=== PATIENT | male | born 1965 | race Hispanic/Latino ===

== ENCOUNTER 2021-03-04 20:28 | Emergency (ER) | payer MEDICAID, MEDICARE ==
[~2021-03-04] VITALS: Ht 165.1 cm; Wt 81.6 kg
[2021-03-04 20:37] VITALS: BP 152/86
[2021-03-04 22:59] VITALS: BP_SYST 162; BP_DIAS 81; BP_DIAS 88
[2021-03-04] MEDS ORDERED: ORPHENADRINE CITRATE 30 MG/ML ML ONE (23:22)
[2021-03-04] MEDS ORDERED: KETOROLAC 60 MG VIAL (30MG/ML) ONE (23:22)
[2021-03-04] MEDS ORDERED: ORPHENADRINE CITRATE 30 MG/ML ML IM ONE (23:30)
[2021-03-04] MEDS ORDERED: KETOROLAC 60 MG VIAL (30MG/ML) IM ONE (23:30)
[2021-03-05] MEDS ORDERED: ORPH-43 PO (00:36)
[2021-03-05] MEDS ORDERED: MELO7.5T12 PO (00:36)
[2021-03-05] MEDS ORDERED: LIDOP TP (00:36)
[2021-03-05 00:49] VITALS: BP 154/87
== END 2021-03-05 00:48 | disposition home or self-care (01) ==
LOC: EDH 20:28
DX: S46.911A Strain of unspecified muscle, fascia and tendon at shoulder and upper arm level, right arm, initial encounter (principal); M62.838 Other muscle spasm; E11.9 Type 2 diabetes mellitus without complications; E78.00 Pure hypercholesterolemia, unspecified; I10 Essential (primary) hypertension; Z79.1 Long term (current) use of non-steroidal anti-inflammatories (NSAID); Z86.73 Personal history of transient ischemic attack (TIA), and cerebral infarction without residual deficits; X58.XXXA Exposure to other specified factors, initial encounter; Y93.89 Activity, other specified; Y92.89 Other specified places as the place of occurrence of the external cause; Y99.8 Other external cause status
CPT/HCPCS: 73030; 96372 ×2; 99284; J1885; J2360

== ENCOUNTER 2022-08-09 13:55 | Emergency (ER) | payer MEDICAID ==
[~2022-08-09] VITALS: Ht 165.1 cm; Wt 81.6 kg
[~2022-08-09 13:55] MED LIST: LIDOP TP; MELO7.5T12 PO; ORPH-43 PO
[2022-08-09 16:01] LABS: BASOPHILS % (AUTO) 0.5 % (0.0-5.0); EOSINOPHILS % (AUTO) 3.7 % (0.0-8.0); HEMATOCRIT 42.8 % (42-54); LYMPHOCYTES % (AUTO) 38.6 % (21.0-51.0); MEAN CORPUSCULAR HEMOGLOBIN 28.1 pg (27.0-33.0); MEAN CORPUSCULAR HGB CONC 34.6 g/dL (32.0-36.0); MEAN CORPUSCULAR VOLUME 81.2 fL (79-99); MONOCYTES % (AUTO) 7.7 % (3.0-13.0); NEUTROPHILS % (AUTO) 49.3 % (40.0-77.0); PLATELET COUNT (AUTO) 180 K/uL (130-400); RED BLOOD CELL COUNT(AUTO) 5.27 MIL/uL (4.50-6.20); RED CELL DISTRIBUTION WIDTH 13.9 % (11.0-15.5); WHITE BLOOD COUNT (AUTO) 6.2 K/uL (4.8-10.8)
[2022-08-09 16:07] LABS: CREATININE 0.9 mg/dL (0.5-1.5); POTASSIUM 3.9 mmol/L (3.5-5.1)
[2022-08-09 16:12] LABS: ALBUMIN 3.8 g/dL (3.5-5.0); TOTAL PROTEIN, SERUM 8.3 g/dL (6.0-8.3)
[2022-08-09 17:25] VITALS: BP 156/85
== END 2022-08-09 17:32 | disposition home or self-care (01) ==
LOC: EDH 13:55
DX: S01.81XA Laceration without foreign body of other part of head, initial encounter (principal); E11.9 Type 2 diabetes mellitus without complications; E78.00 Pure hypercholesterolemia, unspecified; I10 Essential (primary) hypertension; Z79.1 Long term (current) use of non-steroidal anti-inflammatories (NSAID); W18.09XA Striking against other object with subsequent fall, initial encounter; Y93.89 Activity, other specified; Y92.89 Other specified places as the place of occurrence of the external cause; Y99.8 Other external cause status
CPT/HCPCS: 36415; 70450; 72125; 80053; 85025